=== PATIENT | female | born 1990 | race African-American/Black ===

== ENCOUNTER 2018-07-21 10:52 | Emergency (ER) | payer OTHER ==
[~2018-07-21] VITALS: Ht 154.9 cm; Wt 97.1 kg
--- NOTE | ~2018-07-21 | EKG ---
[address] [address] ELECTROCARDIOGRAM REPORT Name: ONIEL MARIE Room #: [facility]#: [id number] Admission: 07/21/18 Attend Phys: Discharge: 07/21/18 Date of : [birth year] Report #: [id number] THIS REPORT FOR: //name// [facility] ED Test Date: 2018-07-21 Test Time: 11:31:21 Pat Name: ONIEL MARIE Department: Room: Gender: F Electronic Device Monitor: KAYA : 1990 Requested By: Anupama Vaca Order Number: [id number] MD: Que Mcfarlane Measurements Intervals [place] Rate: 64 P: 24 [place]: 138 QRS: 60 QRSD: 93 T: 19 QT: 372 QTc: 384 Interpretive Statements Sinus rhythm Normal tracing No previous ECG available for comparison Electronically Signed On 07-22-2018 8:03:41 CDT by Que Mcfarlane [email or web address] <ELECTRONICALLY SIGNED> By: Que Mcfarlane MD, [facility] 07/22/18 [id number] Que Mcfarlane MD, FACC /EPI
[~2018-07-21 10:52] MED LIST: A.E.R PADS1 JAR TOP; AMOXICILLIN 50500 M1 PO; APAP500 PO; CIPROFLOXACIN500 M1 PO; CIPROFLOXIN HC2.5 M1 OPHTHALMIC; DERMOPLAST SPRA56 ML TOP; ERYTHROMYCIN E3.5 G1 OPHTHALMIC; HYDROCORTISONE30 G9 TOP; IBUPROFEN 800800 M1 PO; KEFLEX500 MG PO; LANOLIN HYDROUS28 GM; MACROBID 100 M100 M1 PO; MONISTAT 3 COM1 EACH VG; MONISTAT 745 GM VG; NOHOMEMEDICATIONS; NORCO 5-325 TA1 EACH PO; PHENERGAN 25 MG25 M1 PO; PRENATAL TABLE1 EAC3 PO; PYRIDIUM200 MG PO; TERAZOL 320 GM VG; TRINATE TABLET1 TAB; TRINATE TABLET1 TAB PO; ZOFRAN4 MG PO
[2018-07-21 11:11] LABS: URINE BILIRUBIN NEGATIVE (Negative); URINE BLOOD NEGATIVE (Negative); URINE CLARITY SL CLOUDY; URINE COLOR YELLOW; URINE GLUCOSE-RANDOM* NEGATIVE (Negative); URINE KETONES NEGATIVE (Negative); URINE LEUKOCYTES-REFLEX NEGATIVE (Negative); URINE NITRITE-REFLEX NEGATIVE (Negative); URINE PROTEIN (DIPSTICK) NEGATIVE (Negative); URINE SPECIFIC GRAVITY >= 1.030 (1.005-1.035); URINE UROBILINOGEN 0.2 E.U./dl (0.2-1.0)
[2018-07-21 12:01] LABS: HEMATOCRIT 37.1 % (37.0-47.0); HEMOGLOBIN 12.8 gm/dL (12.0-15.0); MCH 29.9 pg (26.0-34.0); MCHC 34.4 g/dL (28.0-37.0); MCV 86.8 fL (80.0-100.0); RBC 4.27 mil/uL (4.20-5.00); WBC 4.4 thou/uL (4.0-11.0)
[2018-07-21 12:07] LABS: CREATININE 0.7 mg/dL (0.6-1.0); POTASSIUM 3.5 mmol/L (3.5-5.1)
[2018-07-21 13:19] VITALS: BP 113/66
== END 2018-07-21 13:19 | disposition home or self-care (01) ==
LOC: ER 10:52
PROVIDERS: Physician Assistant
DX: R51 Headache (principal); R42 Dizziness and giddiness; Z98.890 Other specified postprocedural states

== ENCOUNTER 2019-01-24 13:10 | Emergency (ER) | payer OTHER ==
[~2019-01-24] VITALS: Ht 154.9 cm; Wt 93.9 kg
[2019-01-24 13:15] VITALS: BP 135/89
[2019-01-24 13:45] LABS: URINE BILIRUBIN NEGATIVE (Negative); URINE BLOOD NEGATIVE (Negative); URINE CLARITY CLEAR; URINE COLOR YELLOW; URINE GLUCOSE-RANDOM* NEGATIVE (Negative); URINE KETONES NEGATIVE (Negative); URINE LEUKOCYTES-REFLEX NEGATIVE (Negative); URINE NITRITE-REFLEX NEGATIVE (Negative); URINE PROTEIN (DIPSTICK) NEGATIVE (Negative); URINE SPECIFIC GRAVITY >= 1.030 (1.005-1.035); URINE UROBILINOGEN 0.2 E.U./dl (0.2-1.0)
== END 2019-01-24 14:20 | disposition home or self-care (01) ==
LOC: ER 13:10
PROVIDERS: Student in an Organized Health Care Education/Training Program
DX: Z32.01 Encounter for pregnancy test, result positive (principal); Z98.890 Other specified postprocedural states